=== PATIENT | male | born 1950 | race Hispanic/Latino ===

== ENCOUNTER → 2017-10-29 14:24 | Outpatient (CLI) | payer OTHER | END | disposition home or self-care (01) | LOC: AMB 14:24 | DX: E16.1 Other hypoglycemia (principal) ==

== ENCOUNTER 2018-01-05 10:22 | Outpatient (CLI) | payer OTHER | END 2018-01-05 10:38 | disposition short-term general hospital (02) | LOC: AMB 10:22 | DX: G81.94 Hemiplegia, unspecified affecting left nondominant side (principal); R47.81 Slurred speech; R11.10 Vomiting, unspecified | CPT/HCPCS: A0425; A0427 ==

== ENCOUNTER 2018-01-05 10:45 | Emergency (ER) | payer OTHER ==
[~2018-01-05] VITALS: Ht 182.9 cm; Wt 158.8 kg
[2018-01-05 10:38] VITALS: TEMP 98
[2018-01-05 11:25] VITALS: BP 198/105
== END 2018-01-05 11:44 | disposition short-term general hospital (02) ==
LOC: ED 10:45
PROC: 0T9B70Z Drainage of Bladder with Drainage Device, Via Natural or Artificial Opening (ICD-10-PCS; principal; 2018-01-05)
PROC: 0BH17EZ Insertion of Endotracheal Airway into Trachea, Via Natural or Artificial Opening (ICD-10-PCS; 2018-01-05)
PROC: 5A1935Z Respiratory Ventilation, Less than 24 Consecutive Hours (ICD-10-PCS; 2018-01-05)
DX: I61.9 Nontraumatic intracerebral hemorrhage, unspecified (principal); R06.09 Other forms of dyspnea
CPT/HCPCS: 31500; 36415; 36600; 51702; 82805; 93005; 94002; 94760; 96365; 96374; 96375; 99285; J0330; J3490